=== PATIENT | female | born 1955 | race Caucasian/White ===

== ENCOUNTER 2018-04-26 17:08 | Emergency (ER) | payer BC ==
[2018-04-26 17:14] VITALS: TEMP 98.5
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
[2018-04-26] MEDS ORDERED: MORPHINE SULFATE 4 MG/ML SYRINGE IVP STA (17:52)
[2018-04-26] MEDS ORDERED: SODIUM CHLORIDE 0.9% 1,000 ML IV STA ×2 (17:52)
--- NOTE | 2018-04-26 18:47 | XR ---
PROCEDURE: XR Hip RT and AP Pelvis 4 views DATE AND TIME: 04/26/2018 6:27 PM REFERRING PHYSICIAN: Roldan Edward DO CLINICAL INDICATION: PHH, Pain TECHNIQUE: AP pelvis and 3 coned right hip views were obtained. COMPARISON: None FINDINGS: Right prosthesis is in place and is intact. However, there is an acute apex-lateral angulat ion proximal femoral fracture. No other fractures. IMPRESSION: Acute proximal femoral fracture.
--- NOTE | 2018-04-26 18:58 | XR ---
PROCEDURE: XR knee complete RT, 3V DATE AND TIME: 04/26/2018 6:27 PM REFERRING PHYSICIAN: Roldan Edward DO CLINICAL INDICATION: PHH, Pain TECHNIQUE: Department protocol. COMPARISON: None FINDINGS: There is no fracture or malalignment. The soft tissues are unremarkable. IMPRESSION: NO ACUTE PROCESS.
--- NOTE | 2018-04-26 19:00 | XR ---
PROCEDURE: XR ankle complete RT, 3V DATE AND TIME: 04/26/2018 6:27 PM REFERRING PHYSICIAN: Roldan Edward DO CLINICAL INDICATION: PHH, Pain TECHNIQUE: Department protocol. COMPARISON: None FINDINGS: There is no fracture or malalignment. The soft tissues are unremarkable. IMPRESSION: NO ACUTE PROCESS.
[2018-04-26 19:52] LABS: Basophils % (A) 1 %; Eosinophils # (A) 0.1 k/uL (0-0.7); Eosinophils % (A) 1 %; HCT 40.3 % (34.0-46.0); HGB 13.1 gm/dL (11.4-16.0); Lymphocytes # (A) 1.2 k/uL (1.0-4.8); Lymphocytes % (A) 19 %; MCH 28.7 pg (25.0-35.0); MCHC 32.5 g/dL (31.0-37.0); MCV 88.3 fL (80.0-100.0); Mean Platelet Volume 7.6; Monocytes # (A) 0.4 k/uL (0-1.0); Monocytes % (A) 7 %; Neutrophils # (A) 4.5 k/uL (1.3-7.7); Neutrophils % (A) 70 %; Platelet Count 224 k/uL (150-450); RBC 4.56 m/uL (3.80-5.40); WBC 6.4 k/uL (3.8-10.6)
[2018-04-26 20:03] LABS: Albumin 3.9 g/dL (3.5-5.0); Magnesium 1.8 mg/dL (1.6-2.3); Phosphorus 3.3 mg/dL (2.5-4.5); Total Bilirubin 0.3 mg/dL (0.2-1.3); Total Protein 6.2 g/dL (6.3-8.2)
[2018-04-26] MEDS ORDERED: HYDROmorphone 1 MG/ML 1 ML SYRINGE IVP STA (20:04)
[2018-04-26 20:16] LABS: Partial Thromboplastin Time 21.3 sec (22.0-30.0); Prothrombin Time 9.9 sec (9.0-12.0)
[2018-04-26 20:24] VITALS: BP 145/91; PULSE 95; RESP 18
[2018-04-26 20:36] LABS: Creatine Kinase 33 U/L (30-135)
[2018-04-26 20:47] LABS: Creatine Kinase MB 0.4 ng/mL (0.0-2.4); Troponin I <0.012 ng/mL (0.000-0.034)
== END 2018-04-26 20:25 | disposition other institution (70) ==
LOC: EC 17:08
DX: S72.001A Fracture of unspecified part of neck of right femur, initial encounter for closed fracture (principal); E07.9 Disorder of thyroid, unspecified; Z96.641 Presence of right artificial hip joint; Z79.899 Other long term (current) drug therapy; Z88.1 Allergy status to other antibiotic agents; Z88.4 Allergy status to anesthetic agent; Z88.0 Allergy status to penicillin; Z88.2 Allergy status to sulfonamides; V43.52XA Car driver injured in collision with other type car in traffic accident, initial encounter
CPT/HCPCS: 36415; 93005; 80053; 82550; 82553; 83735; 84100; 84484; 85025; 85610; 85730; 73502; 73562; 73610; 99285; 96374; 96375; 96361 ×2; J2270; J1170